=== PATIENT | male | born 1975 | race African-American/Black ===

== ENCOUNTER 2017-01-26 16:24 | Emergency (ER) | payer MEDICAID, OTHER ==
--- NOTE | 2017-01-26 17:15 | ER Document Report ---
ED General - General Chief Complaint: Arm Injury Stated Complaint: LEFT ARM/SHOULDER PAIN Time Seen by Provider: 01/26/17 17:11 Mode of Arrival: Ambulatory Information source: Patient Notes: Patient is a 41 year old male who presents with left elbow pain that radiates up to his left shoulder. The pain started about 1 week ago after hitting a golf ball with a golf club but progressively worsened after trying to lift a heavy bag of rice at work yesterday. Describes the pain as sharp and throbbing. He has tried OTC medication without relief. Denies any swelling, ecchymosis, numbness, tingling. TRAVEL OUTSIDE OF THE [place] IN LAST 30 DAYS: No Past Medical History - General Information source: Patient - Social History Smoking Status: Current Every Day Smoker Family History: Reviewed & Not Pertinent Patient has suicidal ideation: No Patient has homicidal ideation: No Renal/ Medical History: Denies: Hx Peritoneal Dialysis Review of Systems - Review of Systems Constitutional: See HPI EENT: No symptoms reported Cardiovascular: No symptoms reported Respiratory: No symptoms reported Gastrointestinal: No symptoms reported Genitourinary: No symptoms reported Male Genitourinary: No symptoms reported Musculoskeletal: See HPI Skin: No symptoms reported Hematologic/Lymphatic: No symptoms reported Neurological/Psychological: No symptoms reported Physical Exam - Vital signs Vitals: Temp Pulse Resp BP Pulse Ox 98.2 F 82 18 151/71 H 100 01/26/17 16:30 01/26/17 16:30 01/26/17 16:30 01/26/17 16:30 01/26/17 16:30 - Notes Notes: PHYSICAL EXAM: CONSTITUTIONAL: Alert and oriented, well-appearing and in no acute distress. HENT: Normocephalic, atraumatic. Trachea midline. Uvula midline. Moist mucous membranes. EYES: Pupils equal round and reactive to light, EOM intact. Sclera anicteric, conjunctiva are normal. No entrapment. HEART: Regular rate and rhythm without murmurs. LUNGS: CTAB and equal. No wheezes, rales or rhonchi. BACK: nontender, no paraspinous spasm, 5+/5 strengths, DTRs 2+, SLR -. EXTREMITIES: left elbow - tender to palpation along medial and lateral epicondyles without deformity or edema. No ecchymosis noted. ROM intact but pain worse with supination and pronation of wrist, no pitting edema. No cyanosis. Cap Refill <3 seconds. Distal pulses intact. NEURO: Cranial nerves grossly intact. Normal sensory/motor exams. PSYCH: Normal mood, normal affect. SKIN: Warm and dry. Normal turgor. No rashes or lesions noted. Course - Re-evaluation Re-evalutation: 01/26/17 18:29 Patient seen and examined. Exam consistent with epicondylitis. No obvious deformity, cellulitis. Distal pulses intact. Will treat with steroids/anti- inflammatories. Advised to follow-up with orthopedics for referral to physical therapy. At this time, will discharge with return precautions and follow-up recommendations. Verbal discharge instructions given at the bedside and opportunity for questions given. Medication warnings reviewed. Patient is in agreement with this plan and has verbalized understanding of return precautions and the need for primary care follow-up in the next 24-72 hours. - Vital Signs Vital signs: Temp Pulse Resp BP Pulse Ox 98.2 F 82 18 151/71 H 100 01/26/17 16:30 01/26/17 16:30 01/26/17 16:30 01/26/17 16:30 01/26/17 16:30 Discharge - Discharge Clinical Impression: Epicondylitis elbow, medial Qualifiers: Laterality: left Qualified Code(s): M77.02 - Medial epicondylitis, left elbow Condition: Stable Disposition: HOME, SELF-CARE Additional Instructions: Tennis Elbow (Lateral Epicondylitis) You have lateral epicondylitis of the elbow, also called tennis elbow. This is a tendonitis at the point where the top-side forearm muscles attach to the outer side of the elbow. This is caused by repeated minor trauma or overuse , often during racquet sports or repetitive manual labor. In tennis, a faulty backhand stroke is usually the cause. Treat the tendonitis with antiinflammatory pain medication such as ibuprofen. Apply warmth to the area for 15 to 20 minutes, about 4 times a day. A wrap or "tennis elbow brace" that compresses the area may help. Steroid injections or surgery are occasionally required for severe cases that don't heal. Avoid or limit any activity that aggravates the pain. Stop racquet sports and golf for 4 to 6 weeks. Tennis players should make sure that they have a proper backhand after the injury heals. Return if you develop worsening pain, loss of mobility in the elbow, severe swelling, or numbness or weakness in the arm. Anti-Inflammatory Medication You have received a prescription for an antiinflammatory agent. This is an excellent, safe drug for pain control. In addition, it has potent antiinflammatory effects which are beneficial, especially in the treatment of injuries, arthritis, or tendonitis. It's best to take this medicine with food. Persons with ulcer disease or allergy to aspirin should notify their physician of this before taking this drug. Take the medication exactly as prescribed. Don't take additional doses unless instructed to do so by your doctor. If you develop wheezing, shortness of breath, hives, faintness, stomach pain, vomiting, or dark black stools, return for re-evaluation at once. STEROID MEDICATION: You have been given a medicine of the cortisone/steroid class. This medication is used to control inflammation or allergy. It is usually only given for a short period of time, until the acute process subsides. There are usually no side effects from short-term use of cortisone-like medications. Some persons feel an increased sense of well-being and are not sleepy at bedtime. Long-term use of cortisone medications is best avoided, unless required for a severe condition. If your condition does not remit, or relapses after the course of corticosteroid medication, you should consult your physician. FOLLOW-UP CARE: If you have been referred to a physician for follow-up care, call the physician s office for an appointment as you were instructed or within the next two days. If you experience worsening or a significant change in your symptoms, notify the physician immediately or return to the Emergency Department at any time for re-evaluation. Prescriptions: Ketorolac Tromethamine [Toradol 10 mg Tablet] 10 mg PO Q6HP PRN #20 tablet PRN Reason: Prednisone [Deltasone 10 mg Tablet] 10 mg PO ASDIR PRN #21 tablet PRN Reason: Forms: Return to Work, Elevated Blood Pressure Referrals: JAJA SEYMOUR DO [ACTIVE STAFF] - Follow up in 1 week
[2017-01-26 18:49] VITALS: BP 127/75
== END 2017-01-26 18:49 | disposition home or self-care (01) ==
LOC: ER 16:24
DX: M77.02 Medial epicondylitis, left elbow (principal); M25.512 Pain in left shoulder; X50.3XXA Overexertion from repetitive movements, initial encounter; Y93.53 Activity, golf; F17.200 Nicotine dependence, unspecified, uncomplicated
CPT/HCPCS: 99283

== ENCOUNTER 2017-10-19 00:01 | Emergency (ER) | payer SELFPAY ==
[2017-10-19] MEDS ORDERED: HALOPERIDOL LACTATE INJ 5 MG/1 ML VIAL IM ONE (01:20)
[2017-10-19] MEDS ORDERED: KETOROLAC TROMETHAMINE INJ/PF 30 MG/1 ML SDV IV ONE (02:51)
[2017-10-19] MEDS ORDERED: PROCHLORPERAZINE EDISYLATE INJ 10 MG/2 ML VIAL IV ONE (02:51)
[2017-10-19] MEDS ORDERED: NORMAL SALINE 1000 ML 1,000 ML IV ONE (02:52)
--- NOTE | 2017-10-19 02:52 | ER Document Report ---
ED Headache - General Chief Complaint: Headache Stated Complaint: HEADACHE Time Seen by Provider: 10/19/17 01:19 Notes: Patient is a 41-year-old male with a history of polysubstance abuse who presents with headache. Patient reports for the past 4 days he has had a constant, dull, throbbing pain to the right side of his head. States that it is worsened by movement, activity and light. Nothing improves the pain. He states that he has tried Tylenol and ibuprofen without relief. He admits to multiple substance abuse issues over the last several days including cocaine and marijuana use. He denies of these seem to have triggered or worsen his pain. He states that he has a history of similar headaches for quite some time , proximal in the past 5-6 years. He has not seen a primary doctor and neurologist regarding this concern. He denies any associated fever, weakness, numbness, altered mental status, difficulty with ambulation, or localizing infectious symptoms. TRAVEL OUTSIDE OF THE [place] IN LAST 30 DAYS: No - Related Data Allergies/Adverse Reactions: No Known Allergies Allergy (Unverified 10/19/17 01:29) Past Medical History - General Information source: Patient - Social History Smoking Status: Current Every Day Smoker Frequency of alcohol use: Occasional Drug Abuse: Cocaine, Marijuana Family History: Reviewed & Not Pertinent Renal/ Medical History: Denies: Hx Peritoneal Dialysis Review of Systems - Review of Systems Notes: Constitutional: Negative for fever. HENT: Negative for sore throat. Eyes: Negative for visual changes. Cardiovascular: Negative for chest pain. Respiratory: Negative for shortness of breath. Gastrointestinal: Negative for abdominal pain, vomiting or diarrhea. Genitourinary: Negative for dysuria. Musculoskeletal: Negative for back pain. Skin: Negative for rash. Neurological: Positive for headache 10 point ROS negative except as marked above and in HPI. Physical Exam - Vital signs Vitals: Temp Pulse Resp BP Pulse Ox 98.2 F 66 22 H 157/97 H 99 10/19/17 00:25 10/19/17 00:25 10/19/17 00:25 10/19/17 00:25 10/19/17 00:25 Interpretation: Hypertensive Notes: PHYSICAL EXAMINATION: GENERAL: Well-appearing, well-nourished and in no acute distress. HEAD: Atraumatic, normocephalic. EYES: Pupils equal round and reactive to light, extraocular movements intact, sclera anicteric, conjunctiva are normal. ENT: nares patent, oropharynx clear without exudates. Moist mucous membranes. NECK: Normal range of motion, supple without lymphadenopathy LUNGS: Breath sounds clear to auscultation bilaterally and equal. No wheezes rales or rhonchi. HEART: Regular rate and rhythm without murmurs ABDOMEN: Soft, nontender, normoactive bowel sounds. No guarding, no rebound. No masses appreciated. EXTREMITIES: Normal range of motion, no pitting or edema. No cyanosis. NEUROLOGICAL: Face symmetric. Tongue protrudes midline. Extraocular motions intact. Pupils are 2 mm and equally reactive. Normal speech, normal gait. 5 out of 5 strength in both the distal and proximal upper and lower extremities bilaterally. Sensation is grossly intact throughout. Finger to nose testing normal. Pronator drift normal. PSYCH: Moderately anxious SKIN: Warm, Dry, normal turgor, no rashes or lesions noted. Course - Re-evaluation Re-evalutation: 10/19/17 02:52 Presentation of a headache that appears to be most consistent with tension versus migrainous type headache. Headache was not maximal in onset, patient has no focal neurologic deficits, no nuchal rigidity, vital signs within normal limits, no papilledema, and patient is overall well in appearance. Based on clinical history and examination I do not suspect an acute subarachnoid hemorrhage, dural venous sinus thrombosis, acute meningitis, or intercranial mass. Patient does admit to polysubstance abuse history of intravenous headache although he is clear to state that he has been having this headache intermittently for the past 6 years and has not pursued any follow-up for it. Given my low clinical suspicion for any acute life-threatening etiology, I do not feel advanced neuro imaging or laboratory testing is indicated at this time. Patient had resolution of his headache after receiving a migraine cocktail. I have emphasized with the patient the importance of discontinuing illicit substance abuse as this is likely contributing to the recurrent nature of his headaches. At this time will discharge with return precautions and follow-up recommendations. Verbal discharge instructions given a the bedside and opportunity for questions given. Medication warnings reviewed. Patient is in agreement with this plan and has verbalized understanding of return precautions and the need for primary care follow-up in the next 24-72 hours. - Vital Signs Vital signs: Temp Pulse Resp BP Pulse Ox 98.2 F 66 22 H 157/97 H 99 10/19/17 00:25 10/19/17 00:25 10/19/17 00:25 10/19/17 00:25 10/19/17 00:25 Discharge - Discharge Clinical Impression: Polysubstance abuse Headache Qualifiers: Headache type: unspecified Headache chronicity pattern: acute headache Intractability: not intractable Qualified Code(s): R51 - Headache Condition: Good Disposition: HOME, SELF-CARE Additional Instructions: You were seen today for a migraine headache. Please follow-up with your primary care doctor regarding today's ED visit. Return to emergency department immediately if you develop a headache that gets to its maximum severity within 20 minutes of onset, you pass out, you develop weakness, numbness, changes in your vision, become unable to keep any fluids down for more than 12 hours, or develop a fever greater than 100.4 degrees Fahrenheit. If you develop a similar migraine headache in the future I recommend that you immediately take 600 mg of ibuprofen and 50 mg of Benadryl and go to sleep as quickly as possible. This can often prevent your migraine headache from becoming severe. As we discussed today you need to immediately discontinue your use of illicit substances particularly cocaine. This will dramatically worsen the recurrence of your headaches.
[2017-10-19 04:40] VITALS: BP 145/80
== END 2017-10-19 04:37 | disposition home or self-care (01) ==
LOC: ER 00:01
DX: R51 Headache (principal); F12.10 Cannabis abuse, uncomplicated; F14.10 Cocaine abuse, uncomplicated; F17.200 Nicotine dependence, unspecified, uncomplicated
CPT/HCPCS: 99283; 96372; 96361; 96374; 96375; J1630; J1885; J0780; J7030